=== PATIENT | female | born 2000 ===

== ENCOUNTER → 2021-08-06 09:06 | Outpatient (BNVA) | payer BC, SELFPAY | PROVIDERS: Visit Provider Psychiatry & Neurology Neurology ==

== ENCOUNTER → 2021-10-01 11:19 | Outpatient (BNVA) | payer BC, SELFPAY | PROVIDERS: PCP Orthopaedic Surgery; Visit Provider Psychiatry & Neurology Neurology | DX: G43.909 Migraine, unspecified, not intractable, without status migrainosus (principal); R53.83 Other fatigue; R25.1 Tremor, unspecified; F41.9 Anxiety disorder, unspecified; Z79.899 Other long term (current) drug therapy | CPT/HCPCS: 99212 ==

== ENCOUNTER → 2022-07-01 10:54 | Outpatient (BNVA) | payer BC, SELFPAY | PROVIDERS: PCP Neurological Surgery; Visit Provider Nurse Practitioner Family | DX: F41.9 Anxiety disorder, unspecified (principal) ==

== ENCOUNTER 2023-03-08 11:05 | Outpatient (AMB) | payer BC, SELFPAY ==
--- NOTE | 2023-03-08 11:05 | MHC.OFFVIS ---
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 Pt reports she had 3 migraine days over the last three months. She used sumatriptan and it relieved the migraine. 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 She takes vitamin B2 400 mg daily. Pt stopped taking amitriptyline due to sleepiness. Pt tried propranolol, gabapentin, citalopram for migraine prevention, but pt did not tolerate.? She is in break and sleeps well and mood is stable. [facility] Medical History (Updated 01/28/22 @ 13:56 by Michelle Lee CNP) Fatigue Scoliosis Surgical History (Updated 03/08/23 @ 11:11 by Mae Glass CMA) H/O toe surgery No history of previous surgery Status post surgical removal of nail matrix of toe of left foot Family History Father HTN (hypertension) Mother Migraine Family/Other Migraine Sister Asthma Allergies Social History (Updated 03/08/23 @ 11:13 by Mae Glass CMA) Household Members: Family Household Members Other:: on campus Alcohol intake: never Patient Tobacco Use Status: Never used Tobacco Current occupational status: student Review of Systems Const All systems reviewed & are unremarkable except as noted in HPI and below Physical Exam Vital Signs: Last Vital Signs Pulse 86 03/08/23 11:13 BP 96/58 L 03/08/23 11:13 Pulse Ox 98 03/08/23 11:13 Oxygen Delivery Method Room Air 03/08/23 11:13 Const General: cooperative and no acute distress Nutritional Appearance: obese Orientation/consciousness: patient oriented x3 Limitations: no limitations Neuro General: patient oriented x3, gait normal, tone normal, moves all extremities, no focal motor deficits and CN's II-XI intact bilaterally Cranial nerves: Yes CN's II-XII intact bilaterally Gait exam (Neuro): Normal gait present Motor exam (neuro): no tremor noted Coordination: [id number] test normal Psych Appearance: grossly normal Mental Status: mental status grossly normal Affect: Anxious affect present Assessment & Plan Assessment & Plan (1) Chronic migraine without aura or status migrainosus: Code(s): G43.709 - Chronic migraine without aura, not intractable, without status migrainosus (2) Anxiety: Code(s): F41.9 - Anxiety disorder, unspecified (3) Fatigue: Code(s): R53.83 - Other fatigue Plan Continue to take vitamin B2 400 mg qdaily. Take sumatriptan 100 mg at onset of migraine PRN. Continue to practice good sleep hygiene. Coding Level of Care Code Est Pt Level 3 (09630) Diagnoses Chronic migraine without aura or status migrainosus G43.709 Anxiety F41.9 Fatigue R53.83
[2023-03-08 11:13] VITALS: BP 96/58; PULSE 86; O2SAT 98
== END 2023-03-08 11:23 | disposition home or self-care (01) ==
PROVIDERS: Visit Provider Nurse Practitioner Family
DX: G43.709 Chronic migraine without aura, not intractable, without status migrainosus (principal); F41.9 Anxiety disorder, unspecified; R53.83 Other fatigue
CPT/HCPCS: 99213

== ENCOUNTER → 2023-03-08 11:05 | Outpatient (BNVA) | payer BC, SELFPAY | PROVIDERS: Visit Provider Nurse Practitioner Family ==